=== PATIENT | female | born 1985 | race Caucasian/White ===

== ENCOUNTER 2017-03-11 07:26 | Emergency (ER) | payer SELFPAY ==
[~2017-03-11] VITALS: Ht 182.9 cm; Wt 135.1 kg
[~2017-03-11 07:26] MED LIST: FLEXERIL10 MG PO
[2017-03-11 07:32] VITALS: BP 174/123
[2017-03-11] MEDS ORDERED: CIPRODEX OTIC7.5 ML BOTH EARS (08:43)
[2017-03-11] MEDS ORDERED: NAPROXEN500 MG PO (08:44)
== END 2017-03-11 08:50 | disposition home or self-care (01) ==
LOC: EME 07:26
DX: H60.91 Unspecified otitis externa, right ear (principal)
CPT/HCPCS: 99281; 99284; J1885; J3010